=== PATIENT | male | born 1975 | race Hispanic/Latino ===

== ENCOUNTER 2025-08-05 14:28 | Emergency (ER) | payer OTHER ==
[~2025-08-05] VITALS: Ht 167.6 cm; Wt 86.2 kg
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
[2025-08-05] MEDS ORDERED: CYCLOBENZAPRINE HCL 10 MG TABLET PO ONE (15:00)
[2025-08-05] MEDS ORDERED: IBUP-2077 PO (15:49)
[2025-08-05] MEDS ORDERED: CYCL-309 PO (15:49)
[2025-08-05 16:02] VITALS: BP 146/75; PULSE 68; RESP 20; TEMP 98.2; O2SAT 97
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
== END 2025-08-05 16:17 | disposition home or self-care (01) ==
LOC: EDH 14:28
DX: S60.222A Contusion of left hand, initial encounter (principal); M54.2 Cervicalgia; M25.561 Pain in right knee; M25.562 Pain in left knee; R51.9 Headache, unspecified; V43.52XA Car driver injured in collision with other type car in traffic accident, initial encounter; Y93.I9 Activity, other involving external motion; Y92.488 Other paved roadways as the place of occurrence of the external cause; Y99.8 Other external cause status
CPT/HCPCS: 73130; 99283